=== PATIENT | female | born 1960 | race Caucasian/White ===

== ENCOUNTER 2023-03-21 08:30 | Day surgery (SDC) | payer BC, SELFPAY ==
[2023-03-21] VITALS (7 sets, daily range): BP systolic 122–140; BP diastolic 48–74; PULSE 60–67; RESP 16–23; TEMP 36.6–36.7; O2SAT 96–99; BMI 20.6
[2023-03-21] MEDS: Lactated Ringers 1,000 ML 80 ML IV (09:30)
--- NOTE | 2023-03-21 09:43 | W.PM.DSUDISC ---
Date of service: 03/21/23 Time of Service: 09:43 Discharge Plan Disposition Condition: Good Discharge Details Attending Provider: Jorje Day Primary Care Provider: Tiffanie Lees Home Meds and New Rx's Prescriptions: No Action levothyroxine 112 MCG tablet 112 mcg PO DAILY cholecalciferol (vitamin D3) 1,000 UNITS tablet 1,000 unit PO DAILY clonazepam 0.5 MG tablet 0.5 mg PO DIRECTED PRN Tums Dual Action (famotidine) 1 EACH tablet,chewable 1,000 mg PO HS pyridoxine (vitamin B6) [Vitamin B-6] 100 MG tablet 100 mg PO DAILY bupropion HCl 300 MG tablet extended release 24 hr 300 mg PO HS
--- NOTE | 2023-03-21 09:46 | PDOC.DSDIS_ITS ---
Date of service: 03/21/23 Time of Service: 09:46 Discharge Plan Disposition Patient Disposition: Home Condition: Good Discharge Details Reason For Visit: Nasal septoplasty Attending Provider: Jorje Day Primary Care Provider: Tiffanie Lees Home Meds and New Rx's Prescriptions: New cephalexin 500 mg capsule 500 mg PO TID 7 Days Qty: 21 0RF No Action levothyroxine 112 MCG tablet 112 mcg PO DAILY cholecalciferol (vitamin D3) 1,000 UNITS tablet 1,000 unit PO DAILY clonazepam 0.5 MG tablet 0.5 mg PO DIRECTED PRN Tums Dual Action (famotidine) 1 EACH tablet,chewable 1,000 mg PO HS pyridoxine (vitamin B6) [Vitamin B-6] 100 MG tablet 100 mg PO DAILY bupropion HCl 300 MG tablet extended release 24 hr 300 mg PO HS Discharge Instructions Additional Instructions: My cell phone number is [phone]. Please call with any concerns or problems. If you are unable to reach me and you feel it is an emergency, please proceed to the emergency room or call 911 Stand Alone Forms: ENT-Septo Instr. Barb Referrals: Jorje Day MD [ [facility] STAFF PHYSICIAN] - (Follow-up with me at 7:45 AM on 03/24/2023 at my office.) Discharge Orders Discharge Orders: Discharge Order (Routine); Ordered 03/21/23 Ordered By: Jorje Day
--- NOTE | 2023-03-21 09:56 | W.ANESPRE ---
General Info Date of Service Date Performed: 03/21/23 Height: 5 ft 3 in Weight: 52.9 kg Body Mass Index (BMI): 20.6 Surgical Procedure: Operation Date: 03/21/23 10:55 Proposed Procedure Side Surgeon p Septoplasty Jorje Day MD Actual Procedure Side Surgeon p Septoplasty Not Applicable Jorje Day MD Pre-Op Diagnosis Post-Op Diagnosis Deviated nasal septum Meds Allergies and Home Medications Allergies Allergy/AdvReac Type Severity Reaction Status Date / Time seasonal Allergy Uncoded 03/18/23 13:54 Home Medication Medication Instructions Recorded cholecalciferol (vitamin D3) 25 1,000 unit PO DAILY 09/16/14 mcg (1,000 unit) tablet levothyroxine 112 mcg tablet 112 mcg PO DAILY 09/16/14 clonazepam 0.5 mg tablet 0.5 mg PO DIRECTED PRN 12/31/16 famotidine-Ca carb-mag hydrox 10 1,000 mg PO HS 12/31/16 mg-800 mg-165 mg chewable tablet (Tums Dual Action (famotidine)) bupropion HCl 300 mg 24 hr tablet, 300 mg PO HS 03/15/17 extended release pyridoxine (vitamin B6) 100 mg 100 mg PO DAILY 03/15/17 tablet (Vitamin B-6) cephalexin 500 mg capsule 500 mg PO TID 7 days #21 caps 03/21/23 Current Visit Medications: Current Medications Generic Name Dose Route Start Last Admin Trade Name Freq PRN Reason Stop Dose Admin Acetaminophen 320 - 650 mg 03/21/23 09:42 Acetaminophen Solution 650 Mg/20.3 Ml Cup PO Q4H PRN PRN Ringer's Solution 1,000 mls @ 80 mls/hr 03/21/23 06:00 IV 03/21/23 23:59 INFUSION MISTY Cefazolin Sodium/Dextrose 2 gm in 50 mls @ 100 mls/hr 03/21/23 06:00 Ancef Duplex IVPB 03/21/23 23:59 PREOP MISTY Tranexamic Acid 1,000 mg/ 60 mls @ 360 mls/hr 03/21/23 06:00 Sodium Chloride IVPB 03/21/23 16:00 DIRECTED MISTY IV Miscellaneous Supplies 1 each 03/21/23 06:00 Iv Access IV 03/21/23 23:59 DIRECTED MISTY Ibuprofen 600 mg 03/21/23 09:42 Ibuprofen 600 Mg Tab PO Q6H PRN PRN Sodium Chloride 0 ml 03/21/23 06:00 Normal Saline Flush 10 Ml Syr IV 03/21/23 23:59 PRN PRN Sodium Chloride 0 ml 03/21/23 06:00 Normal Saline 10 Ml Vial IJ 03/21/23 23:59 DIRECTED PRN Sterile Water 0 ml 03/21/23 06:00 Water,Injection,Sterile 10 Ml Vial IJ 03/21/23 23:59 DIRECTED PRN PFSH Active Problems Active Problems: Problem Status Onset Code Chronic allergic rhinitis J30.9 Deviated nasal septum J34.2 Nasal congestion R09.81 Medical History Medical History Anxiety Depression Esophageal spasm GERD (gastroesophageal reflux disease) Hx of menorrhagia Hypothyroidism Insomnia Raynaud's disease Uterine perforation Surgical History Surgical History Abdominal hysterectomy Cholecystectomy Vaginal hysterectomy Tobacco Smoking/Tobacco Use Status: Former Tobacco Use Alcohol Alcohol Intake: current Alcohol intake frequency: 0-2 drinks per day Alcohol type: beer and wine Substance Use Substance use: Never Substance use type: does not use Vital Signs and Lab Results Vital Signs Most Recent Vital Signs in EMR: Most Recent Vital Signs Temp Pulse Resp BP Pulse Ox 36.7 C 65 16 133/62 99 03/21/23 09:11 03/21/23 09:11 03/21/23 09:11 03/21/23 09:11 03/21/23 09:11 Lab Results Blood Type / Crossmatch: No Data to Display Complete Blood Count: No Data to Display Complete Metabolic Panel: No Data to Display Liver Function Panel: No Data to Display Coagulation Panel: No Data to Display Cardiac Panel: No Data to Display Arterial Blood Gas: No Data to Display Venous Blood Gas: No Data to Display Pancreas Panel: No Data to Display Thyroid Panel: No Data to Display Infectious Disease: No Data to Display Blood Cultures: No Data to Display Toxicology Panel: No Data to Display Anesthesia Assessment and Plan Anesthesia History Personal History: No History of Anesthesia Complications Family History: No Family History of Anesthesia Complications Exercise Tolerance Exercise Tolerance: Metabolic Equivalents>4 Pertinent Negatives Pertinent Negatives: No Symptoms of GERD, No Major Cardiovascular Symptoms or Complaints, No Major Pulmonary Symptoms or Complaints and No History of CVA/TIA Cardiac & Pulmonary Exam Cardiac Exam: Normal S1/S2 Heart Sounds Pulmonary Exam: Clear Bilateral Breath Sounds Implantable Cardiac Device Does patient have a Pacemaker or an ICD?: No Airway Exam Known Difficult Airway: No Mallampati Class: 3 Mouth Opening: Narrow (< 3cm) Thyromental Distance: Less than 3 cm Neck Range of Motion: Full ROM Neck Circumference: Normal Teeth Condition: Normal Dentition ASA Classification ASA Score: ASA 2 Emergency Case?: No NPO Status NPO Status: NPO Clears >2 hours, Solids >8 hours Anesthesia Plan Resuscitation Status: Full Code Anesthesia Technique: General Anesthesia Airway Planned: Endotracheal Tube Monitors Used: Standard Monitors
[2023-03-21] MEDS: ceFAZolin 2 GM/50 ML BAG IVPB (10:12)
[2023-03-21] MEDS: Lidocaine 1% Multi-Dose W/EPI 1/100,000 50 ML VIAL (10:19)
[2023-03-21] MEDS: Bacitracin 30 GM TUBE (10:47)
--- NOTE | 2023-03-21 11:09 | ROE_ITS ---
Date of service: 03/21/23 Time of Service: 11:09 Operative Note Operative Note DATE OF PROCEDURE: 03/21/23 PRE-OP DIAGNOSIS: Left nasal obstruction, deviated nasal septum POST-OP DIAGNOSIS: same PROCEDURE: Septoplasty SURGEON: Jorje Day ANESTHESIA TYPE: General LMA/ETT Refer to Anesthesia Record ESTIMATED BLOOD LOSS: 15 PATHOLOGY: none sent COMPLICATIONS: None Patient was transported to: PACU Patient's condition: stable Implants: Humphries splints Indications: Patient has relative left nasal obstruction secondary to the displacement of her quadrangular cartilage into her left nostril and off of the maxillary spine/crest. She had failed to respond to maximal medical therapy. Options were explained to the patient regarding further management including leaving things as they were, second opinion, or consideration of septoplasty. She opted for the latter. Risks and benefits as well as the operative and postoperative courses were reviewed in detail. H&P was reviewed. There have been no changes. Findings: Quadrangular cartilage displaced from the maxillary crest anteriorly into the left nostril. Extremely fragile mucosa that appears otherwise healthy. Significant scar tissue between the perichondrium and the cartilage itself bi laterally Procedure Description: After obtaining an adequate level of general endotracheal anesthesia the patient was positioned in supine position and prepped and draped in appropriate fashion. 1% lidocaine with 1/100,000 epinephrine was injected in the septum bilaterally and 5 minutes was allowed to elapse. A left-sided hemitransfixion incision over the anterior aspect of the quadrangular cartilage was made using a 15 blade, and submucoperichondrial planes were begun. Significant scar tissue was encountered, making it exceedingly hard to separate the overlying mucosa and perichondrium from the underlying cartilage. This turned out to be the case on both sides of the nasal septum. Mild pressures would result in tears in the mucosa. Because of this, and because I was able to reposition the quadrangular cartilage anteriorly by freeing it from the maxillary crest, excising a piece of the redundant cartilage and repositioning the quadrangular cartilage into the maxillary crest sutured into place using a 4-0 chromic suture which resulted in marked improvement in left nostril and left airway, attempts to go further back into the nasal cavity were abandoned as I was concerned that we might need to see a septal perforation. Nonetheless once the quadrangular cartilage had been repositioned and the nasal tip was stable as was the columella and the reduction appeared stable as well. I was able to pass a [place] elevator without significant resistance through both nostrils to the nasopharynx. After ensuring adequate hemostasis bilaterally the hemitransfixion incision was closed with 4-0 chromic sutures and then Humphries splints placed bilaterally and sutured into place loosely using a 2.0 Prolene on a Albert needle. The patient was then awakened and extubated by anesthesia and taken the recovery room in stable condition. I was present at the entire case.
--- NOTE | 2023-03-21 11:41 | W.ANESPOSTOP ---
Postoperative Evaluation Date, Time and Location Date Performed: 03/21/23 Time Performed: 11:25 Patient Location: PACU Vital Signs Most Recent Imported Vital Signs: Most Recent Vital Signs Temp Pulse Resp BP Pulse Ox 36.6 C 60 16 134/74 99 03/21/23 11:30 03/21/23 11:30 03/21/23 11:30 03/21/23 11:30 03/21/23 11:30 Pain Score Most Recent Pain Score: Most Recent Pain Score Pain Level 7 03/21/23 11:30 Assessment Mental Status: Awake (Alert & Oriented to Patient Baseline) Airway and Respiratory Function: Patent airway with normal (patient baseline) respiratory exam Cardiovascular Function: Hemodynamically Stable Hydration Status: Adequately Hydrated Nausea & Vomiting: No Nausea or Vomiting Pain: Pain is Moderate or Severe Postoperative Pain Management: Pain being addressed with medication Peripheral Nerve Block: Patient did not receive a nerve block
[2023-03-21] MEDS: Ibuprofen 600 MG TAB PO (11:43)
[2023-03-21] MEDS: Acetaminophen Solution 650 MG/20.3 ML CUP PO (11:43)
== END 2023-03-21 13:11 | disposition home or self-care (01) ==
PROVIDERS: PCP Legal Medicine; Visit Provider Otolaryngology
PROC: (CPT 30520; principal; 2023-03-21 10:45)
DX: J34.2 Deviated nasal septum (principal); I73.00 Raynaud's syndrome without gangrene; K21.9 Gastro-esophageal reflux disease without esophagitis; F41.9 Anxiety disorder, unspecified
CPT/HCPCS: 30520; J0690; J1100; J2405; J2704